=== PATIENT | male | born 1965 | race Caucasian/White ===

== ENCOUNTER 2020-09-21 22:46 | Inpatient (IN) | payer MEDICAID ==
[~2020-09-21] VITALS: Ht 175.3 cm; Wt 94.6 kg
[2020-09-21] MEDS ORDERED: SODIUM CHLORIDE 0.9% 1,000 ML IV ONE (23:00)
[2020-09-21] MEDS ORDERED: LORazepam 2 MG/ML VIAL IVP ONE (23:00)
[2020-09-21 23:45] LABS: BASOPHILS % (AUTO) 0.4 % (0.0-2.0); EOSINOPHILS % (AUTO) 0 % (1.0-6.0); HEMATOCRIT 45.6 % (41-53); HEMOGLOBIN 15.1 g/dL (13.5-17.5); LYMPHOCYTES # (AUTO) 0.3 K/uL (1.0-4.8); LYMPHOCYTES % (AUTO) 4.8 % (22.0-44.0); MEAN CORPUSCULAR HEMOGLOBIN 26.3 pg (26.0-34.0); MEAN CORPUSCULAR HGB CONC 33.1 G/dL (31.0-37.0); MEAN CORPUSCULAR VOLUME 79 fL (80-100); MONOCYTES # (AUTO) 0.7 K/uL (0.1-1.0); MONOCYTES % (AUTO) 12.6 % (2.0-9.0); NEUTROPHILS # (AUTO) 4.8 K/uL (1.8-7.7); NEUTROPHILS % (AUTO) 82.2 % (40.0-70.0); PLATELET COUNT (AUTO) 132 K/uL (150-450); RED BLOOD CELL COUNT(AUTO) 5.74 MIL/uL (4.50-5.90); RED CELL DISTRIBUTION WIDTH 19.7 % (11.5-14.5)
[2020-09-21 23:56] LABS: ANION GAP 16 mmol/L (8-16); CALCIUM, TOTAL 8.9 mg/dL (8.8-10.5); CARBON DIOXIDE 21 mmol/L (22-29); CHLORIDE 94 mmol/L (98-107); CREATININE 0.97 mg/dL (0.60-1.30); GLOMERULAR FILTR. RATE CALC > 60 mL/min (>60); GLUCOSE,RANDOM 168 mg/dL (70-110); POTASSIUM 3.1 mmol/L (3.5-5.1); SODIUM SERUM 131 mmol/L (136-145); UREA NITROGEN, BLOOD 5 mg/dL (7-18)
[2020-09-22] VITALS (7 sets, daily range): BP systolic 137–166; BP diastolic 84–105
[2020-09-22 00:02] LABS: PROTHROMBIN TIME 11.1 SEC (9.4-11.6)
[2020-09-22 00:09] LABS: B-TYPE NATRIURETIC PEPTIDE 101 pg/mL (0-100)
[2020-09-22] MEDS ORDERED: POTASSIUM CHLORIDE 20 MEQ ER TABLET PO ONE (00:15)
[2020-09-22] MEDS ORDERED: CloNIDine HCL 0.2 MG TABLET PO ONE (00:15)
[2020-09-22 00:20] LABS: ALANINE AMINOTRANSFERASE 95 U/L (12-78); ALBUMIN 4.1 g/dL (3.4-5.0); ALKALINE PHOSPHATASE 114 U/L (46-116); ASPARTATE AMINOTRANSFERASE 140 U/L (15-37); BILIRUBIN,TOTAL 1.6 mg/dL (0.1-1.0); CREATINE KINASE, TOTAL ONLY 189 U/L (39-308); TOTAL PROTEIN, SERUM 8.3 g/dL (6.4-8.2)
[2020-09-22 00:24] LABS: LACTIC ACID 4.3 mmol/L (0.4-2.0)
[2020-09-22] MEDS ORDERED: SODIUM CHLORIDE 0.9% 1,000 ML IV ONE (00:30)
[2020-09-22] MEDS ORDERED: SODIUM CHLORIDE 0.9% 100 ML ONE (01:09)
[2020-09-22] MEDS ORDERED: IOHEXOL 350 MG/ML 100 ML VIAL ONE (01:09)
[2020-09-22 01:35] LABS: APPEARANCE,URINE CLEAR (CLEAR); BILIRUBIN,URINE NEGATIVE (NEGATIVE); GLUCOSE, URINE (UA) NEGATIVE (NEGATIVE); KETONES,URINE TRACE mg/dL (NEGATIVE); LEUKOCYTE ESTERASE ,URINE NEGATIVE (NEGATIVE); NITRATE,URINE NEGATIVE (NEGATIVE); OCCULT BLOOD,URINE SMALL (NEGATIVE); PH,URINE 6.5 (5.0-8.0); PROTEIN,URINE TRACE (NEGATIVE); UROBILINOGEN,URINE 0.2 mg/dL (<=1.0)
[2020-09-22 01:43] LABS: BACTERIA,URINE None Seen /HPF (None Seen); RBC,URINE 0-2 /HPF (0-2); SQUAMOUS EPITHELIAL CELL,UR Rare /LPF (None Seen); WBC,URINE None Seen /HPF (0-5)
[2020-09-22] MEDS ORDERED: POTASSIUM CHL 10 MEQ/WATER 50 ML IV PRN (02:30)
[2020-09-22] MEDS ORDERED: LevETIRAcetam 1,000 MG in DEXTROSE 5%-WATER 100 ML IV ONE (02:30)
[2020-09-22] MEDS: SODIUM CHLORIDE 0.9% 1,000 ML IV SCH ×2 (02:37→12:30)
[2020-09-22 02:42] LABS: AMPHET/METH SCREEN,URINE NEGATIVE (NEGATIVE); BARBITURATE SCREEN, URINE NEGATIVE (NEGATIVE); BENZODIAZEPINES SCREEN,URINE NEGATIVE (NEGATIVE); CANNABINOID SCREEN,URINE NEGATIVE (NEGATIVE); COCAINE SCREEN,URINE NEGATIVE (NEGATIVE); METHADONE SCREEN, URINE NEGATIVE (NEGATIVE); OPIATE SCREEN,URINE NEGATIVE (NEGATIVE)
[2020-09-22 02:48] LABS: PHENCYCLIDINE SCREEN,URINE NEGATIVE (NEGATIVE)
[2020-09-22 07:23] LABS: BASOPHILS % (AUTO) 0.4 % (0.0-2.0); EOSINOPHILS % (AUTO) 0 % (1.0-6.0); HEMATOCRIT 41.3 % (41-53); HEMOGLOBIN 13.7 g/dL (13.5-17.5); LYMPHOCYTES # (AUTO) 0.5 K/uL (1.0-4.8); LYMPHOCYTES % (AUTO) 11.5 % (22.0-44.0); MEAN CORPUSCULAR HEMOGLOBIN 26.5 pg (26.0-34.0); MEAN CORPUSCULAR HGB CONC 33.1 G/dL (31.0-37.0); MEAN CORPUSCULAR VOLUME 80 fL (80-100); MONOCYTES # (AUTO) 0.6 K/uL (0.1-1.0); MONOCYTES % (AUTO) 13.4 % (2.0-9.0); NEUTROPHILS # (AUTO) 3.3 K/uL (1.8-7.7); NEUTROPHILS % (AUTO) 74.7 % (40.0-70.0); PLATELET COUNT (AUTO) 117 K/uL (150-450); RED BLOOD CELL COUNT(AUTO) 5.14 MIL/uL (4.50-5.90); RED CELL DISTRIBUTION WIDTH 19.4 % (11.5-14.5)
[2020-09-22 08:12] LABS: ANION GAP 6 mmol/L (8-16); CALCIUM, TOTAL 8.1 mg/dL (8.8-10.5); CARBON DIOXIDE 24 mmol/L (22-29); CHLORIDE 103 mmol/L (98-107); GLOMERULAR FILTR. RATE CALC > 60 mL/min (>60); GLUCOSE,RANDOM 100 mg/dL (70-110); POTASSIUM 3.4 mmol/L (3.5-5.1); SODIUM SERUM 133 mmol/L (136-145); UREA NITROGEN, BLOOD 5 mg/dL (7-18)
[2020-09-22] MEDS ORDERED: LORazepam 2 MG TABLET PO PRN (09:15)
[2020-09-22] MEDS: MAGNESIUM SULFATE 2 GM, MVI, ADULT NO.1 WITH VIT K 10 ML, THIAMINE 100 MG, FOLIC ACID 1... IV SCH ×5 (10:09)
[2020-09-22] MEDS: LevETIRAcetam 500 MG in DEXTROSE 5%-WATER 100 ML IV SCH (14:03)
[2020-09-23] MEDS: POTASSIUM CHLORIDE 20 MEQ ER TABLET PO PRN (01:53)
[2020-09-23] MEDS: LevETIRAcetam 500 MG in DEXTROSE 5%-WATER 100 ML IV SCH ×2 (01:56→15:21)
[2020-09-23 04:52] VITALS: BP 137/87
[2020-09-23] MEDS: SODIUM CHLORIDE 0.9% 1,000 ML IV SCH ×3 (05:24→18:30)
[2020-09-23] MEDS: MAGNESIUM SULFATE 2 GM, MVI, ADULT NO.1 WITH VIT K 10 ML, THIAMINE 100 MG, FOLIC ACID 1... IV SCH ×5 (06:45)
[2020-09-23] MEDS ORDERED: LORazepam 2 MG TABLET PO PRN (07:00)
[2020-09-23 07:19] VITALS: BP 152/107
[2020-09-23] MEDS: LORazepam 2 MG TABLET PO SCH ×4 (09:00→19:46)
[2020-09-23 11:42] VITALS: BP 148/88
[2020-09-23] MEDS ORDERED: THIA100T92 PO (14:54)
[2020-09-23] MEDS ORDERED: MULT-248 PO (14:54)
[2020-09-23] MEDS ORDERED: LEVE500T8 PO (14:54)
[2020-09-23 15:52] VITALS: BP 150/90
[2020-09-23 19:28] VITALS: BP 139/94
[2020-09-23 23:39] VITALS: BP 143/95
[2020-09-24] MEDS: MAGNESIUM SULFATE 2 GM, MVI, ADULT NO.1 WITH VIT K 10 ML, THIAMINE 100 MG, FOLIC ACID 1... IV SCH ×10 (01:18→21:57)
[2020-09-24] MEDS: LevETIRAcetam 500 MG in DEXTROSE 5%-WATER 100 ML IV SCH ×2 (03:14→16:51)
[2020-09-24] MEDS: SODIUM CHLORIDE 0.9% 1,000 ML IV SCH (04:30)
[2020-09-24 04:48] VITALS: BP 146/95
[2020-09-24 05:58] LABS: BASOPHILS % (AUTO) 0.7 % (0.0-2.0); EOSINOPHILS % (AUTO) 1.1 % (1.0-6.0); HEMATOCRIT 44.1 % (41-53); HEMOGLOBIN 14.3 g/dL (13.5-17.5); LYMPHOCYTES % (AUTO) 27.9 % (22.0-44.0); MEAN CORPUSCULAR HEMOGLOBIN 26.3 pg (26.0-34.0); MEAN CORPUSCULAR HGB CONC 32.4 G/dL (31.0-37.0); MEAN CORPUSCULAR VOLUME 81 fL (80-100); MONOCYTES # (AUTO) 0.7 K/uL (0.1-1.0); MONOCYTES % (AUTO) 19.6 % (2.0-9.0); NEUTROPHILS # (AUTO) 1.8 K/uL (1.8-7.7); NEUTROPHILS % (AUTO) 50.7 % (40.0-70.0); PLATELET COUNT (AUTO) 126 K/uL (150-450); RED BLOOD CELL COUNT(AUTO) 5.42 MIL/uL (4.50-5.90)
[2020-09-24 06:15] LABS: ANION GAP 2 mmol/L (8-16); CALCIUM, TOTAL 8.4 mg/dL (8.8-10.5); CARBON DIOXIDE 26 mmol/L (22-29); CHLORIDE 103 mmol/L (98-107); CREATININE 0.75 mg/dL (0.60-1.30); GLOMERULAR FILTR. RATE CALC > 60 mL/min (>60); GLUCOSE,RANDOM 103 mg/dL (70-110); POTASSIUM 3.3 mmol/L (3.5-5.1); SODIUM SERUM 131 mmol/L (136-145); UREA NITROGEN, BLOOD 5 mg/dL (7-18)
[2020-09-24 07:20] VITALS: BP 145/97
[2020-09-24] MEDS: LORazepam 2 MG TABLET PO SCH (10:02)
[2020-09-24] MEDS: POTASSIUM CHLORIDE 20 MEQ ER TABLET PO PRN (11:18)
[2020-09-24 11:33] VITALS: BP 149/97
[2020-09-24] MEDS ORDERED: GADOTERATE MEGLUMINE 10 MMOL/20 ML VIAL IVP ONE (15:44)
[2020-09-24 16:35] VITALS: BP 155/93
[2020-09-24 19:22] VITALS: BP 145/96
[2020-09-24 23:27] VITALS: BP 152/101
[2020-09-25] MEDS: LevETIRAcetam 500 MG in DEXTROSE 5%-WATER 100 ML IV SCH (02:48)
[2020-09-25 04:41] VITALS: BP 142/75
[2020-09-25 06:54] LABS: ALANINE AMINOTRANSFERASE 64 U/L (12-78); ALBUMIN 3.2 g/dL (3.4-5.0); ALKALINE PHOSPHATASE 74 U/L (46-116); ANION GAP 9 mmol/L (8-16); ASPARTATE AMINOTRANSFERASE 75 U/L (15-37); BILIRUBIN,TOTAL 0.8 mg/dL (0.1-1.0); CALCIUM, TOTAL 8.5 mg/dL (8.8-10.5); CARBON DIOXIDE 25 mmol/L (22-29); CHLORIDE 98 mmol/L (98-107); CREATININE 0.58 mg/dL (0.60-1.30); GLOMERULAR FILTR. RATE CALC > 60 mL/min (>60); GLUCOSE,RANDOM 109 mg/dL (70-110); POTASSIUM 3.3 mmol/L (3.5-5.1); SODIUM SERUM 132 mmol/L (136-145); TOTAL PROTEIN, SERUM 6.7 g/dL (6.4-8.2); UREA NITROGEN, BLOOD 5 mg/dL (7-18)
[2020-09-25] MEDS ORDERED: LORazepam 1 MG TABLET PO PRN (07:00)
[2020-09-25] MEDS: POTASSIUM CHLORIDE 20 MEQ ER TABLET PO PRN (08:00)
[2020-09-25 08:18] VITALS: BP 125/98
[2020-09-25] MEDS ORDERED: LORazepam 1 MG TABLET PO SCH (09:00)
[2020-09-25] MEDS ORDERED: LEVE750T35 PO (12:22)
[2020-09-25 13:12] VITALS: BP 148/84
[2020-09-25] MEDS ORDERED: NAPROXEN 250 MG TABLET PO ONE (13:15)
[2020-09-25] MEDS ORDERED: NAPROXEN 375 MG TABLET PO ONE (13:15)
[2020-09-26] MEDS ORDERED: LORazepam 1 MG TABLET PO PRN (07:00)
== END 2020-09-25 14:35 | disposition home or self-care (01) | DRG 101 ==
LOC: EMS 22:48 → EDBD 22:48 → 5S 09-22 04:33
PROVIDERS: ADMIT Internal Medicine; ATTEND Internal Medicine
DX: G40.909 Epilepsy, unspecified, not intractable, without status epilepticus (principal); E87.1 Hypo-osmolality and hyponatremia; E87.2 Acidosis; F10.139 Alcohol abuse with withdrawal, unspecified; E87.6 Hypokalemia; I10 Essential (primary) hypertension; F17.210 Nicotine dependence, cigarettes, uncomplicated; Y90.9 Presence of alcohol in blood, level not specified
CPT/HCPCS: 70450; 70553; 71045; 71275; 80048; 80053; 81001; 82550; 83605; 83735; 83880; 84132; 84484; 85025; 85610; 85730; 93005; 95816; 99285; A9575; J0712; J2060; J3411; J3475; J3490; J7030; J7050; J7060; 36415-L1; 36415-TC